=== PATIENT | female | born 1960 | race Caucasian/White ===

== ENCOUNTER → 2024-10-04 | Outpatient (REF) | payer OTHER | LOC: EDBD 09-28 11:00 → MAMMO 11:13 | PROVIDERS: ATTEND Family Medicine | DX: Z12.31 Encounter for screening mammogram for malignant neoplasm of breast (principal); M85.88 Other specified disorders of bone density and structure, other site | CPT/HCPCS: 77067; 77080 ==

== ENCOUNTER → 2024-11-10 | Outpatient (REF) | payer OTHER ==
[~2024-11-10] MED LIST: CETIRIZINE HCL10 M1; PAXIL40 MG PO; TYLENOL ARTHRITIS
== END ==
LOC: RAD 11:46
PROVIDERS: ATTEND Family Medicine
DX: Z13.83 Encounter for screening for respiratory disorder NEC (principal)
CPT/HCPCS: 71046

== ENCOUNTER → 2024-11-16 | Day surgery (SDC) | payer OTHER ==
[2024-11-15 10:45] LABS: BASOPHILS % 0.5 % (0.0-1.0); EOSINOPHILS # (AUTO) 0.1 (0.0-0.4); EOSINOPHILS % 1.8 % (0.0-6.0); HEMATOCRIT 37.1 % (34.2-44.1); HEMOGLOBIN 12.1 g/dL (12.0-16.0); LYMPHOCYTES # (AUTO) 3.2 (1.0-3.2); LYMPHOCYTES % 52.5 % (18.0-39.1); MEAN CORPUSCULAR HEMOGLOBIN 31.3 pg (28-32); MEAN CORPUSCULAR HGB CONC 32.6 g/dL (31-35); MEAN CORPUSCULAR VOLUME 95.9 fL (81-99); MONOCYTES # (AUTO) 0.7 (0.2-0.8); MONOCYTES % 10.6 % (4.4-11.3); NEUTROPHILS # (AUTO) 2.1 (2.1-6.9); NEUTROPHILS % 34.4 % (38.7-80.0); PLATELET COUNT 184 x10e3/uL (140-360); RED BLOOD COUNT 3.87 x10e6/uL (3.6-5.1); RED CELL DISTRIBUTION WIDTH 13.5 % (11.7-14.4); WHITE BLOOD COUNT 6.15 x10e3/uL (4.8-10.8)
[~2024-11-16] MED LIST changes: +ACETAMINOPHEN 1000 MG/100 ML IV PRN; +ASPIRIN 325 MG TAB PO SCH; +ASPIRIN81 MG PO; +CEFAZOLIN SODIUM 2 GM ONE; +CELECOXIB 100 MG CAP PO SCH; +CELECOXIB 200 MG CAP ONE; +DOCUSATE SODIUM 100 MG CAP PO PRN; +FENTANYL CITRATE/PF 100MCG/2 ML INJ ONE; +HYDROCODONE/APAP 5MG-325MG TAB PO PRN; +LIDOCAINE HCL 2% LOCAL INJ 5 ML SDV VIAL INJ ONE; +ONDANSETRON HCL INJ 2MG/ML 2ML 2 MG/ML VIAL IV PRN; +ONDANSETRON HCL INJ 2MG/ML 2ML 2 MG/ML VIAL ONE; +PROPOFOL IV EMULSION 10 MG/ML 20 ML VIAL ONE; +ROPIVACAINE/EPI/CLONIDINE/KET 50 ML SYRINGE INJ ONE; +SODIUM CHLORIDE 0.9% 1000ML 1,000 ML IV SCH; +SODIUM CHLORIDE 0.9% 200 ML ONE
[2024-11-16] MEDS: LACTATED RINGER'S 1,000 ML ONE (06:43)
[2024-11-16] MEDS: CELECOXIB 200 MG CAP ONE (06:43)
[2024-11-16] MEDS: DEXAMETHASONE 10MG/ML PF INJ ONE (06:44)
[2024-11-16] MEDS: GABAPENTIN 300 MG CAP ONE (06:44)
[2024-11-16 09:07] VITALS: TEMP 98
[2024-11-16] MEDS: MEPERIDINE HCL INJ 25 MG/ML VIAL ONE (09:45)
[2024-11-16] MEDS: HYDROCODONE/APAP 7.5MG-325MG 1 EA TAB PO PRN (10:00)
[2024-11-16 11:30] VITALS: BP 116/66; PULSE 84; RESP 16; O2SAT 94
== END | disposition home health service (06) ==
LOC: OR 05:27
PROVIDERS: ATTEND Specialist
DX: M17.12 Unilateral primary osteoarthritis, left knee (principal); M06.9 Rheumatoid arthritis, unspecified; D64.9 Anemia, unspecified; N20.0 Calculus of kidney; N39.0 Urinary tract infection, site not specified; L40.50 Arthropathic psoriasis, unspecified; Z71.3 Dietary counseling and surveillance; F41.9 Anxiety disorder, unspecified; Z71.82 Exercise counseling; Z91.048 Other nonmedicinal substance allergy status; Z01.812 Encounter for preprocedural laboratory examination; Z79.82 Long term (current) use of aspirin; Z79.1 Long term (current) use of non-steroidal anti-inflammatories (NSAID); Z79.899 Other long term (current) drug therapy
CPT/HCPCS: 27447; 36415; 73560; 85025; 86850; 86900; 97110; 97116; 97161; C1713 ×2; C1776 ×2; J2003; J2175; J2405; J2704; J3010; J7050; J7121